=== PATIENT | female | born 1965 | race Hispanic/Latino ===

== ENCOUNTER 2017-09-20 08:00 | Day surgery (SDC) | payer MEDICAID ==
[~2017-09-20] VITALS: Ht 154.9 cm; Wt 99.1 kg
[~2017-09-20 08:00] MED LIST: ALLO100T PO; ASEN5TAB8 SL; CARB-39 PO; DICL2100G TP; ESCI20TA36 PO; LEVE500T19 PO; MELO-108 PO; OMEP40CA37 PO; QUET50TA55 PO; SERT50TA12 PO; SODIUM CHLORIDE 0.9% 1000ML 1,000 ML IV ONE; TOPI25TA48 PO; VITAD50000 PO
[2017-09-20] MEDS ORDERED: TRIA15OI6 TP (09:33)
[2017-09-20 09:34] VITALS: BP 140/68
[2017-09-20] MEDS ORDERED: PROPOFOL 10 MG/ML 20ML VIAL IV ONE ×2 (11:32→11:58)
[2017-09-20 12:13] VITALS: BP 90/38
== END 2017-09-20 13:20 ==
LOC: ENDO 08:00 → DAH 08:00 → ENDO 13:20
PROVIDERS: ATTEND Internal Medicine
DX: D12.2 Benign neoplasm of ascending colon (principal); D12.5 Benign neoplasm of sigmoid colon; Z68.41 Body mass index [BMI] 40.0-44.9, adult; K29.70 Gastritis, unspecified, without bleeding; B96.81 Helicobacter pylori [H. pylori] as the cause of diseases classified elsewhere; E11.9 Type 2 diabetes mellitus without complications; E78.00 Pure hypercholesterolemia, unspecified; M19.90 Unspecified osteoarthritis, unspecified site; G40.909 Epilepsy, unspecified, not intractable, without status epilepticus; I10 Essential (primary) hypertension; F32.9 Major depressive disorder, single episode, unspecified; F41.9 Anxiety disorder, unspecified; D12.4 Benign neoplasm of descending colon; E66.01 Morbid (severe) obesity due to excess calories; Z79.899 Other long term (current) drug therapy; Z90.49 Acquired absence of other specified parts of digestive tract; Z90.710 Acquired absence of both cervix and uterus; Z98.890 Other specified postprocedural states; Z79.84 Long term (current) use of oral hypoglycemic drugs
CPT/HCPCS: 43239; 45385; 82948 ×2; 88305; 88312; A4606; A4649; J2704 ×2; J7030